=== PATIENT | male | born 1955 | race Caucasian/White ===

== ENCOUNTER → 2020-02-15 | Outpatient (CLI) | payer OTHER ==
--- NOTE | 2020-02-15 13:01 | Diagnostic Imaging Report ---
INDICATION: Low back pain and left hip pain. TIME OF EXAM: 12:41 p.m. EXAMINATION: Frontal and lateral views of the lumbar spine were obtained. FINDINGS: Curvature alignment is normal. Vertebral body heights and disc spaces are well-maintained. No fracture or subluxation is seen. There are atherosclerotic calcifications throughout the abdominal aorta. IMPRESSION: No acute bony abnormality is detected. Dictated by: Dictated on workstation # [id number]
== END ==
LOC: RAD FS 12:32
PROVIDERS: ATTEND Family Medicine
DX: M54.16 Radiculopathy, lumbar region (principal); M25.552 Pain in left hip
CPT/HCPCS: 72100